=== PATIENT | female | born 1990 | race Caucasian/White ===

== ENCOUNTER 2022-01-27 14:16 | Inpatient (IN) | payer BC, OTHER ==
[2022-01-27] MEDS ORDERED: SODIUM CHLORIDE 1,000 ML IV ONE (14:46)
[2022-01-27 15:22] LABS: HEMATOCRIT 57.4 % (32.4-45.2); HEMOGLOBIN 16.2 GM/dL (10.7-15.3); MCH 28.6 pg (25.7-33.7); MCHC 28.2 g/dl (32.0-36.0); MEAN CELL VOLUME 101.3 fl (80-96); MEAN PLT VOLUME 11.3 fl (7.5-11.1); PLATELET COUNT 509 10^3/uL (134-434); RBC 5.67 M/mm3 (3.60-5.2); RDW 15.4 % (11.6-15.6); WHITE BLOOD COUNT 23.2 K/mm3 (4.0-10.0)
[2022-01-27 15:27] LABS: VENOUS BASE EXCESS -26.2 mmol/L (-2-2); VENOUS O2 SATURATION 60.6 % (70-80); VENOUS PCO2 31.8 mmHg (38-52)
[2022-01-27 15:30] LABS: INR 1.08 (0.83-1.09); PROTHROMBIN TIME (PATIENT) 12.4 SEC (9.7-13.0); VENOUS PH 6.908 (7.310-7.410)
[2022-01-27 15:33] LABS: ACTIVATED PTT 28.4 SECONDS (25.2-36.5)
[2022-01-27] MEDS ORDERED: SODIUM CHLORIDE 0.9% 500 ML INFUS.BAG IV ONE ×2 (15:43→17:47)
[2022-01-27 15:52] LABS: LACTIC ACID 5.6 mmol/L (0.4-2.0)
[2022-01-27 15:55] LABS: EPI CELLS 15 /uL (0-25.1); HYALINE CASTS 2 /uL (0-3.1); PH,URINE 5.5 (5.0-8.0); URINE APPEARANCE CLEAR; URINE BACTERIA 8 /uL (0-1359); URINE BILIRUBIN NEGATIVE (NEGATIVE); URINE COLOR YELLOW; URINE GLUCOSE (UA) 3+ (NEGATIVE); URINE KETONE 3+ (NEGATIVE); URINE LEUK ESTERASE NEGATIVE (NEGATIVE); URINE NITRITE NEGATIVE (NEGATIVE); URINE PROTEIN 1+ (NEGATIVE); URINE RBC 12 /uL (0-23.9); URINE UROBILINOGEN 0.2 mg/dL (0.2-1.0); URINE WBC 4 /uL (0-25.8)
[2022-01-27] MEDS ORDERED: INSULIN REGULAR 100 UNITS in SODIUM CHLORIDE 99 ML IVPB SCH ×2 (16:30→17:45)
[2022-01-27 17:30] LABS: ANISOCYTOSIS 0; HELMET CELLS 0; HOWELL-JOLLY BODIES 0; MACROCYTOSIS 0; OVALOCYTE 0; ROULEAU 0; SICKELED CELLS 0; TARGET CELLS 0; TEAR DROP CELLS 0; TOXIC GRANULATION 0
[2022-01-27] MEDS ORDERED: INSULIN REGULAR HUMAN 100 UNITS/ML *VIAL* (FOR IVP) IVPUSH ONE (17:40)
[2022-01-27] MEDS ORDERED: SODIUM CHLORIDE 1,000 ML with POTASSIUM CHLORIDE 20 MEQ IV SCH (17:45)
[2022-01-27 18:01] LABS: ALBUMIN 4.5 g/dl (3.4-5.0); ALK PHOS 326 U/L (45-117); ANION GAP 38 MMOL/L (8-16); BILIRUBIN,TOTAL 0.5 mg/dL (0.2-1); BLOOD UREA NITROGEN 51.1 mg/dL (7-18); CALCIUM 10.6 mg/dL (8.5-10.1); CHLORIDE 105 mmol/L (98-107); CO2 3 mmol/L (21-32); CREATININE 3.2 mg/dL (0.55-1.3); GLUCOSE,RANDOM 1307 mg/dL (74-106); SGOT/AST 34 U/L (15-37); SGPT/ALT 108 U/L (13-61); SODIUM 146 mmol/L (136-145); TOT PROT 9.4 g/dl (6.4-8.2)
[2022-01-27 19:58] LABS: VENOUS BASE EXCESS -24.7 mmol/L (-2-2); VENOUS PCO2 27.2 mmHg (38-52)
[2022-01-27 19:59] LABS: VENOUS O2 SATURATION 61.5 % (70-80)
[2022-01-27 20:17] LABS: CHLORIDE 120 mmol/L (98-107); SODIUM 154 mmol/L (136-145)
[2022-01-27 20:19] LABS: ANION GAP 26 MMOL/L (8-16); BLOOD UREA NITROGEN 53.8 mg/dL (7-18); CO2 8 mmol/L (21-32)
[2022-01-27 20:26] LABS: GLUCOSE,RANDOM 887 mg/dL (74-106)
[2022-01-27 20:30] LABS: VENOUS PH 6.971 (7.310-7.410)
[2022-01-27] MEDS ORDERED: KCL 10 MEQ IVPB 30 MEQ/300 ML INFUS.BAG IVPB ONE (22:27)
[2022-01-27] MEDS: KCL 10 MEQ IVPB 10 MEQ/100 ML INFUS.BAG IVPB SCH (22:31)
[2022-01-27 22:47] LABS: CHLORIDE 125 mmol/L (98-107); SODIUM 156 mmol/L (136-145)
[2022-01-27 22:48] LABS: CALCIUM 9.6 mg/dL (8.5-10.1)
[2022-01-27 22:49] LABS: ANION GAP 21 MMOL/L (8-16); BLOOD UREA NITROGEN 47.3 mg/dL (7-18); CO2 10 mmol/L (21-32)
[2022-01-27 22:52] LABS: CREATININE 2.4 mg/dL (0.55-1.3)
[2022-01-27 23:00] LABS: GLUCOSE,RANDOM 642 mg/dL (74-106)
[2022-01-27] MEDS ORDERED: POTASSIUM CHLORIDE 40 MEQ in SODIUM CHLORIDE 0.45% 1,000 ML IV SCH (23:00)
[2022-01-28] MEDS ORDERED: POTASSIUM CHLORIDE 40 MEQ in SODIUM CHLORIDE 0.45% 1,000 ML IV SCH (00:10)
[2022-01-28] MEDS: KCL 10 MEQ IVPB 10 MEQ/100 ML INFUS.BAG IVPB SCH ×2 (00:48→05:17)
[2022-01-28 01:12] LABS: CHLORIDE 128 mmol/L (98-107); SODIUM 159 mmol/L (136-145)
[2022-01-28 01:14] LABS: ANION GAP 18 MMOL/L (8-16); CO2 13 mmol/L (21-32)
[2022-01-28 01:15] LABS: BLOOD UREA NITROGEN 44.1 mg/dL (7-18)
[2022-01-28 01:18] LABS: CREATININE 2.2 mg/dL (0.55-1.3)
[2022-01-28 01:19] LABS: GLUCOSE,RANDOM 645 mg/dL (74-106)
[2022-01-28 05:00] LABS: CHLORIDE 131 mmol/L (98-107); SODIUM 158 mmol/L (136-145)
[2022-01-28 05:03] LABS: ANION GAP 14 MMOL/L (8-16); BLOOD UREA NITROGEN 38.1 mg/dL (7-18); CALCIUM 9.5 mg/dL (8.5-10.1); CO2 14 mmol/L (21-32)
[2022-01-28 05:07] LABS: CREATININE 1.8 mg/dL (0.55-1.3)
[2022-01-28 05:16] LABS: GLUCOSE,RANDOM 443 mg/dL (74-106)
[2022-01-28] MEDS ORDERED: POTASSIUM CHLORIDE 20 MEQ PREMIX IVPB 100 ML IVPB SCH (09:00)
[2022-01-28] MEDS ORDERED: MUPIROCIN 2% TOPICAL OINTMENT FOR DECOLONIZATION NS SCH (10:00)
[2022-01-28] MEDS ORDERED: INSULIN (LEVEMIR) 100 UNITS/ML UNITS SQ SCH ×2 (10:00→22:00)
[2022-01-28] MEDS: POTASSIUM CHLORIDE 40 MEQ in SODIUM CHLORIDE 0.45% 1,000 ML IV SCH (10:21)
[2022-01-28 10:45] LABS: ARTERIAL BLD GAS O2 SATURATION 91.7 % (95-98); ARTERIAL BLOOD GAS BASE EXCESS -9.3 mmol/L (-2-2); ARTERIAL BLOOD GAS PO2 63.7 mmHg (80-100); ARTERIAL BLOOD GAS pH 7.347 (7.350-7.450)
[2022-01-28 10:47] LABS: ALLENS TEST POSITIVE
[2022-01-28] MEDS: POTASSIUM CHLORIDE 10 MEQ PREMIX IVPB (POTASSIUM RIDER) IVPB SCH ×3 (11:09→13:30)
[2022-01-28] MEDS: INSULIN SLIDING SCALE (NOVOLOG) 1 VIAL SQ SCH ×4 (11:12→22:53)
[2022-01-28 11:32] LABS: CHLORIDE 132 mmol/L (98-107)
[2022-01-28 11:35] LABS: ALBUMIN 3.6 g/dl (3.4-5.0); BLOOD UREA NITROGEN 31.5 mg/dL (7-18); CALCIUM 9.9 mg/dL (8.5-10.1); CO2 18 mmol/L (21-32); GLUCOSE,RANDOM 236 mg/dL (74-106)
[2022-01-28 11:36] LABS: LIPASE 319 U/L (73-393); MAGNESIUM 3.4 mg/dL (1.8-2.4)
[2022-01-28 11:38] LABS: CREATININE 1.4 mg/dL (0.55-1.3); PHOSPHOROUS 1.4 mg/dL (2.5-4.9); SGOT/AST 23 U/L (15-37); SGPT/ALT 69 U/L (13-61)
[2022-01-28 11:40] LABS: BILIRUBIN,TOTAL 0.6 mg/dL (0.2-1)
[2022-01-28 11:44] LABS: ALK PHOS 225 U/L (45-117); ANION GAP 12 MMOL/L (8-16); SODIUM 162 mmol/L (136-145); TOT PROT 7.3 g/dl (6.4-8.2)
[2022-01-28 12:02] LABS: LACTIC ACID 2.1 mmol/L (0.4-2.0)
[2022-01-28 13:38] LABS: BASO % 0.2 % (0-2.0); EOS % 0.1 % (0-4.5); HEMATOCRIT 45.3 % (32.4-45.2); HEMOGLOBIN 14.6 GM/dL (10.7-15.3); LYMPH % 6.9 % (8-40); MCH 28.3 pg (25.7-33.7); MCHC 32.2 g/dl (32.0-36.0); MEAN CELL VOLUME 87.9 fl (80-96); MEAN PLT VOLUME 10.4 fl (7.5-11.1); MONO % 9.3 % (3.8-10.2); NEUT % 83.5 % (42.8-82.8); PLATELET COUNT 270 10^3/uL (134-434); RBC 5.16 M/mm3 (3.60-5.2); RDW 13.6 % (11.6-15.6); WHITE BLOOD COUNT 18.8 K/mm3 (4.0-10.0)
[2022-01-28 15:41] LABS: ANISOCYTOSIS 0; HELMET CELLS 0; HOWELL-JOLLY BODIES 0; MACROCYTOSIS 0; OVALOCYTE 0; ROULEAU 0; SICKELED CELLS 0; TARGET CELLS 0; TEAR DROP CELLS 0; TOXIC GRANULATION 0
[2022-01-28] MEDS: SODIUM CHLORIDE 0.45% 1,000 ML IV SCH ×2 (16:01→19:25)
[2022-01-28 16:14] LABS: BLOOD UREA NITROGEN 28.2 mg/dL (7-18); CALCIUM 10.2 mg/dL (8.5-10.1)
[2022-01-28 16:19] LABS: CREATININE 1.3 mg/dL (0.55-1.3)
[2022-01-28 20:01] LABS: CALCIUM 9.2 mg/dL (8.5-10.1)
[2022-01-28 20:02] LABS: BLOOD UREA NITROGEN 29.6 mg/dL (7-18)
[2022-01-28 20:05] LABS: CREATININE 1.3 mg/dL (0.55-1.3)
[2022-01-28] MEDS: INSULIN (LEVEMIR) 100 UNITS/ML UNITS SQ ONE ×2 (20:23→22:42)
[2022-01-28] MEDS ORDERED: CHLORHEXIDINE GLUCONATE 4% CLEANSER FOR DECOLONIZATION TP SCH (22:00)
[2022-01-28] MEDS: ENOXAPARIN NA (PORCINE) 40 MG/0.4 ML DISP.SYRIN SQ SCH (22:53)
[2022-01-29] MEDS: SODIUM CHLORIDE 0.45% 1,000 ML IV SCH (00:35)
[2022-01-29] MEDS ORDERED: SODIUM CHLORIDE 0.45% 1,000 ML IV SCH ×2 (02:38→11:14)
[2022-01-29] MEDS: INSULIN (LEVEMIR) 100 UNITS/ML UNITS SQ SCH (06:39)
[2022-01-29] MEDS: INSULIN (NOVOLOG) ASPART 100 UNITS/ML 10ML VIAL SQ SCH ×3 (06:39→18:08)
[2022-01-29] MEDS: INSULIN SLIDING SCALE (NOVOLOG) 1 VIAL SQ SCH ×4 (06:40→22:04)
[2022-01-29] MEDS: ENOXAPARIN NA (PORCINE) 40 MG/0.4 ML DISP.SYRIN SQ SCH ×2 (11:14→22:04)
[2022-01-29] MEDS: POTASSIUM CHLORIDE 40 MEQ in SODIUM CHLORIDE 0.45% 1,000 ML IV SCH (11:44)
[2022-01-29 12:08] LABS: BASO % 0.4 % (0-2.0); EOS % 0.6 % (0-4.5); HEMATOCRIT 37.6 % (32.4-45.2); HEMOGLOBIN 12.8 GM/dL (10.7-15.3); LYMPH % 16.4 % (8-40); MCH 28.9 pg (25.7-33.7); MEAN CELL VOLUME 85.2 fl (80-96); MEAN PLT VOLUME 9.9 fl (7.5-11.1); MONO % 8.9 % (3.8-10.2); NEUT % 73.7 % (42.8-82.8); PLATELET COUNT 225 10^3/uL (134-434); RBC 4.42 M/mm3 (3.60-5.2); RDW 13.9 % (11.6-15.6); WHITE BLOOD COUNT 10.5 K/mm3 (4.0-10.0)
[2022-01-29 12:44] LABS: CALCIUM 9.4 mg/dL (8.5-10.1)
[2022-01-29 12:45] LABS: MAGNESIUM 2.4 mg/dL (1.8-2.4)
[2022-01-29 12:47] LABS: PHOSPHOROUS 2.9 mg/dL (2.5-4.9)
[2022-01-29 12:48] LABS: BILIRUBIN,TOTAL 0.8 mg/dL (0.2-1); TOT PROT 6.2 g/dl (6.4-8.2)
[2022-01-29 14:58] VITALS: BMI 51.2
[2022-01-29] MEDS ORDERED: SODIUM CHLORIDE IV SCH ×2 (15:00)
[2022-01-29] MEDS ORDERED: WATER FOR INJ STERILE IV SCH ×2 (15:00)
[2022-01-29] MEDS ORDERED: POTASSIUM CHLORIDE TABS 20 MEQ TABLET.ER (FP) PO ONE (15:40)
[2022-01-29 16:05] LABS: BLOOD UREA NITROGEN 18.4 mg/dL (7-18); CALCIUM 9.4 mg/dL (8.5-10.1)
[2022-01-29 16:08] LABS: CREATININE 0.9 mg/dL (0.55-1.3)
[2022-01-29 16:09] LABS: PHOSPHOROUS 2.6 mg/dL (2.5-4.9)
[2022-01-29] MEDS: POTASSIUM CHLORIDE ORAL LIQUID 20 MEQ/15 ML PO ONE ×2 (17:39→18:34)
[2022-01-29] MEDS: SODIUM CHLORIDE 0.45%/POT 20 MEQ/1,000 ML INFUS.BAG IV SCH (18:32)
[2022-01-29] MEDS: NYSTATIN 500,000 UNITS/5 ML SUSPENSION PO SCH ×2 (18:36→23:37)
[2022-01-29] MEDS ORDERED: POTASSIUM CHLORIDE ORAL LIQUID 20 MEQ/15 ML PO ONE ×2 (18:57→22:00)
[2022-01-29 21:09] LABS: CALCIUM 9.2 mg/dL (8.5-10.1)
[2022-01-29 21:10] LABS: BLOOD UREA NITROGEN 15.8 mg/dL (7-18)
[2022-01-29 21:13] LABS: CREATININE 0.9 mg/dL (0.55-1.3)
[2022-01-29] MEDS ORDERED: INSULIN (LEVEMIR) 100 UNITS/ML UNITS SQ SCH (22:00)
[2022-01-29] MEDS: KCL 10 MEQ IVPB 10 MEQ/100 ML INFUS.BAG IVPB SCH (23:37)
[2022-01-30] MEDS: KCL 10 MEQ IVPB 10 MEQ/100 ML INFUS.BAG IVPB SCH ×2 (00:44→02:02)
[2022-01-30] MEDS: NYSTATIN 500,000 UNITS/5 ML SUSPENSION PO SCH ×4 (06:32→23:03)
[2022-01-30] MEDS: INSULIN (LEVEMIR) 100 UNITS/ML UNITS SQ SCH (06:32)
[2022-01-30] MEDS: INSULIN (NOVOLOG) ASPART 100 UNITS/ML 10ML VIAL SQ SCH ×3 (08:16→17:38)
[2022-01-30] MEDS: INSULIN SLIDING SCALE (NOVOLOG) 1 VIAL SQ SCH ×2 (08:17→12:59)
[2022-01-30] MEDS: ENOXAPARIN NA (PORCINE) 40 MG/0.4 ML DISP.SYRIN SQ SCH ×2 (10:18→21:50)
[2022-01-30] MEDS ORDERED: INSULIN (LEVEMIR) 100 UNITS/ML UNITS SQ SCH ×2 (10:56→15:09)
[2022-01-30 11:01] LABS: CALCIUM 8.7 mg/dL (8.5-10.1)
[2022-01-30 11:02] LABS: ALBUMIN 2.8 g/dl (3.4-5.0); BLOOD UREA NITROGEN 14.1 mg/dL (7-18)
[2022-01-30 11:05] LABS: CREATININE 0.8 mg/dL (0.55-1.3)
[2022-01-30 11:06] LABS: TOT PROT 6.1 g/dl (6.4-8.2)
[2022-01-30] MEDS ORDERED: INSULIN (NOVOLOG) ASPART 100 UNITS/ML 10ML VIAL SQ SCH (12:29)
[2022-01-30] MEDS: POTASSIUM CHLORIDE ORAL LIQUID 20 MEQ/15 ML PO SCH ×2 (13:03→21:50)
[2022-01-30] MEDS ORDERED: DEXAMETHASONE 0.5 MG TABLET PO ONE (22:00)
[2022-01-30] MEDS: SODIUM CHLORIDE 0.45%/POT 20 MEQ/1,000 ML INFUS.BAG IV SCH (23:03)
[2022-01-31] MEDS: NYSTATIN 500,000 UNITS/5 ML SUSPENSION PO SCH ×3 (07:08→17:34)
[2022-01-31] MEDS: INSULIN (LEVEMIR) 100 UNITS/ML UNITS SQ SCH ×2 (07:11→22:38)
[2022-01-31] MEDS: INSULIN (NOVOLOG) ASPART 100 UNITS/ML 10ML VIAL SQ SCH ×3 (08:25→17:33)
[2022-01-31 08:40] LABS: BASO % 0.4 % (0-2.0); EOS % 1.8 % (0-4.5); HEMATOCRIT 38.4 % (32.4-45.2); HEMOGLOBIN 12.8 GM/dL (10.7-15.3); LYMPH % 31.8 % (8-40); MCH 28.8 pg (25.7-33.7); MCHC 33.2 g/dl (32.0-36.0); MEAN CELL VOLUME 86.6 fl (80-96); MEAN PLT VOLUME 9.9 fl (7.5-11.1); MONO % 9.4 % (3.8-10.2); NEUT % 56.6 % (42.8-82.8); PLATELET COUNT 183 10^3/uL (134-434); RBC 4.44 M/mm3 (3.60-5.2); RDW 13.4 % (11.6-15.6); WHITE BLOOD COUNT 5.6 K/mm3 (4.0-10.0)
[2022-01-31 08:50] LABS: CALCIUM 9.1 mg/dL (8.5-10.1)
[2022-01-31 08:51] LABS: BLOOD UREA NITROGEN 11.1 mg/dL (7-18); MAGNESIUM 2.4 mg/dL (1.8-2.4)
[2022-01-31 08:54] LABS: CREATININE 0.7 mg/dL (0.55-1.3); PHOSPHOROUS 3.2 mg/dL (2.5-4.9)
[2022-01-31] MEDS: POTASSIUM CHLORIDE ORAL LIQUID 20 MEQ/15 ML PO SCH ×2 (11:41→22:39)
[2022-01-31] MEDS ORDERED: INSULIN (LEVEMIR) 100 UNITS/ML UNITS SQ SCH (13:09)
[2022-01-31] MEDS ORDERED: DEXTROSE 50%-WATER - 25 GM/50 ML VIAL IVPUSH PRN (13:26)
[2022-01-31] MEDS: ENOXAPARIN NA (PORCINE) 40 MG/0.4 ML DISP.SYRIN SQ SCH ×2 (14:29→22:38)
[2022-01-31] MEDS: INSULIN SLIDING SCALE (NOVOLOG) 1 VIAL SQ SCH ×2 (17:33→22:38)
[2022-02-01] MEDS: NYSTATIN 500,000 UNITS/5 ML SUSPENSION PO SCH ×5 (00:55→23:20)
[2022-02-01] MEDS: SODIUM CHLORIDE 0.45%/POT 20 MEQ/1,000 ML INFUS.BAG IV SCH (01:49)
[2022-02-01] MEDS: INSULIN (LEVEMIR) 100 UNITS/ML UNITS SQ SCH ×2 (06:17→23:42)
[2022-02-01] MEDS: ENOXAPARIN NA (PORCINE) 40 MG/0.4 ML DISP.SYRIN SQ SCH ×2 (10:16→23:16)
[2022-02-01] MEDS: POTASSIUM CHLORIDE ORAL LIQUID 20 MEQ/15 ML PO SCH ×2 (10:17→23:20)
[2022-02-01] MEDS: INSULIN (NOVOLOG) ASPART 100 UNITS/ML 10ML VIAL SQ SCH ×3 (10:17→18:16)
[2022-02-01] MEDS: INSULIN SLIDING SCALE (NOVOLOG) 1 VIAL SQ SCH ×4 (10:18→23:49)
[2022-02-01 11:51] LABS: CALCIUM 9.2 mg/dL (8.5-10.1)
[2022-02-01 11:52] LABS: ALBUMIN 3.1 g/dl (3.4-5.0)
[2022-02-01 11:53] LABS: BLOOD UREA NITROGEN 10.3 mg/dL (7-18)
[2022-02-01 11:53] LABS: BASO % 0.8 % (0-2.0); EOS % 2.9 % (0-4.5); HEMATOCRIT 39.5 % (32.4-45.2); LYMPH % 31.4 % (8-40); MCH 28.7 pg (25.7-33.7); MEAN CELL VOLUME 86.9 fl (80-96); MEAN PLT VOLUME 9.8 fl (7.5-11.1); MONO % 9.7 % (3.8-10.2); NEUT % 55.2 % (42.8-82.8); PLATELET COUNT 206 10^3/uL (134-434); RBC 4.54 M/mm3 (3.60-5.2); RDW 13.3 % (11.6-15.6); WHITE BLOOD COUNT 6.6 K/mm3 (4.0-10.0)
[2022-02-01 11:55] LABS: CREATININE 0.7 mg/dL (0.55-1.3)
[2022-02-01 11:56] LABS: TOT PROT 6.5 g/dl (6.4-8.2)
[2022-02-01 11:57] LABS: BILIRUBIN,TOTAL 0.8 mg/dL (0.2-1)
[2022-02-01] MEDS ORDERED: DEXAMETHASONE 0.5 MG TABLET PO ONE (22:00)
[2022-02-02] MEDS: NYSTATIN 500,000 UNITS/5 ML SUSPENSION PO SCH ×3 (06:31→18:30)
[2022-02-02] MEDS: INSULIN (LEVEMIR) 100 UNITS/ML UNITS SQ SCH ×2 (07:50→22:19)
[2022-02-02] MEDS: INSULIN (NOVOLOG) ASPART 100 UNITS/ML 10ML VIAL SQ SCH ×3 (07:51→16:50)
[2022-02-02] MEDS: INSULIN SLIDING SCALE (NOVOLOG) 1 VIAL SQ SCH ×4 (07:52→22:19)
[2022-02-02] MEDS: ENOXAPARIN NA (PORCINE) 40 MG/0.4 ML DISP.SYRIN SQ SCH ×2 (09:52→22:18)
[2022-02-02] MEDS: POTASSIUM CHLORIDE ORAL LIQUID 20 MEQ/15 ML PO SCH ×2 (09:53→22:19)
[2022-02-02 12:52] LABS: BASO % 0.4 % (0-2.0); EOS % 3.1 % (0-4.5); LYMPH % 17.8 % (8-40); MCH 28.4 pg (25.7-33.7); MCHC 32.6 g/dl (32.0-36.0); MEAN CELL VOLUME 87.1 fl (80-96); MEAN PLT VOLUME 10.1 fl (7.5-11.1); NEUT % 70.7 % (42.8-82.8); PLATELET COUNT 267 10^3/uL (134-434); RBC 4.59 M/mm3 (3.60-5.2); RDW 13.3 % (11.6-15.6); WHITE BLOOD COUNT 10.6 K/mm3 (4.0-10.0)
[2022-02-02 13:35] LABS: ALBUMIN 3.4 g/dl (3.4-5.0); BLOOD UREA NITROGEN 9.6 mg/dL (7-18)
[2022-02-02 13:40] LABS: BILIRUBIN,TOTAL 1.1 mg/dL (0.2-1); TOT PROT 6.8 g/dl (6.4-8.2)
[2022-02-02 13:53] LABS: CALCIUM 9.4 mg/dL (8.5-10.1); CREATININE 0.7 mg/dL (0.55-1.3)
[2022-02-02 15:16] LABS: BILIRUBIN,DIRECT 0.4 mg/dL (0.0-0.2)
[2022-02-03] MEDS: NYSTATIN 500,000 UNITS/5 ML SUSPENSION PO SCH ×5 (00:51→23:50)
[2022-02-03] MEDS: INSULIN (LEVEMIR) 100 UNITS/ML UNITS SQ SCH ×2 (06:53→21:41)
[2022-02-03] MEDS: INSULIN SLIDING SCALE (NOVOLOG) 1 VIAL SQ SCH ×4 (06:54→21:41)
[2022-02-03] MEDS: INSULIN (NOVOLOG) ASPART 100 UNITS/ML 10ML VIAL SQ SCH ×3 (06:54→18:40)
[2022-02-03] MEDS: POTASSIUM CHLORIDE ORAL LIQUID 20 MEQ/15 ML PO SCH ×2 (10:02→21:41)
[2022-02-03] MEDS: ENOXAPARIN NA (PORCINE) 40 MG/0.4 ML DISP.SYRIN SQ SCH ×2 (10:03→21:41)
[2022-02-03 12:34] LABS: HEMATOCRIT 40.3 % (32.4-45.2); HEMOGLOBIN 13.2 GM/dL (10.7-15.3); MCH 28.5 pg (25.7-33.7); MCHC 32.9 g/dl (32.0-36.0); MEAN CELL VOLUME 86.7 fl (80-96); MEAN PLT VOLUME 10.9 fl (7.5-11.1); PLATELET COUNT 317 10^3/uL (134-434); RBC 4.65 M/mm3 (3.60-5.2); WHITE BLOOD COUNT 12.3 K/mm3 (4.0-10.0)
[2022-02-03 13:02] LABS: ALBUMIN 3.6 g/dl (3.4-5.0); BLOOD UREA NITROGEN 12.3 mg/dL (7-18); CALCIUM 9.8 mg/dL (8.5-10.1)
[2022-02-03 13:05] LABS: CREATININE 0.8 mg/dL (0.55-1.3)
[2022-02-03 13:08] LABS: BILIRUBIN,TOTAL 0.8 mg/dL (0.2-1); TOT PROT 7.3 g/dl (6.4-8.2)
[2022-02-04] MEDS: NYSTATIN 500,000 UNITS/5 ML SUSPENSION PO SCH ×3 (06:13→17:56)
[2022-02-04] MEDS ORDERED: INSULIN SLIDING SCALE (NOVOLOG) 1 VIAL SQ ONE (06:34)
[2022-02-04] MEDS: INSULIN SLIDING SCALE (NOVOLOG) 1 VIAL SQ SCH ×4 (06:43→21:42)
[2022-02-04] MEDS: POTASSIUM CHLORIDE ORAL LIQUID 20 MEQ/15 ML PO SCH ×2 (09:18→21:34)
[2022-02-04] MEDS: ENOXAPARIN NA (PORCINE) 40 MG/0.4 ML DISP.SYRIN SQ SCH (09:18)
[2022-02-04] MEDS: INSULIN (LEVEMIR) 100 UNITS/ML UNITS SQ SCH ×2 (09:19→21:34)
[2022-02-04] MEDS: INSULIN (NOVOLOG) ASPART 100 UNITS/ML 10ML VIAL SQ SCH ×3 (09:19→17:56)
[2022-02-04 10:19] LABS: HEMATOCRIT 38.3 % (32.4-45.2); HEMOGLOBIN 12.6 GM/dL (10.7-15.3); MCH 28.7 pg (25.7-33.7); MEAN CELL VOLUME 87.2 fl (80-96); MEAN PLT VOLUME 9.8 fl (7.5-11.1); PLATELET COUNT 341 10^3/uL (134-434); RBC 4.39 M/mm3 (3.60-5.2); RDW 12.8 % (11.6-15.6); WHITE BLOOD COUNT 12.4 K/mm3 (4.0-10.0)
[2022-02-04 10:34] LABS: ALBUMIN 3.3 g/dl (3.4-5.0); BLOOD UREA NITROGEN 10.1 mg/dL (7-18); CALCIUM 9.1 mg/dL (8.5-10.1)
[2022-02-04 10:37] LABS: CREATININE 0.8 mg/dL (0.55-1.3)
[2022-02-04 10:40] LABS: BILIRUBIN,TOTAL 0.8 mg/dL (0.2-1); TOT PROT 6.7 g/dl (6.4-8.2)
[2022-02-04 11:25] LABS: ANISOCYTOSIS 0; MACROCYTOSIS 0; PLATELET ESTIMATE NORMAL
[2022-02-04 18:34] VITALS: RESP 18
[2022-02-05] MEDS: NYSTATIN 500,000 UNITS/5 ML SUSPENSION PO SCH ×4 (00:04→17:06)
[2022-02-05] MEDS: INSULIN SLIDING SCALE (NOVOLOG) 1 VIAL SQ SCH ×3 (06:04→16:56)
[2022-02-05] MEDS: INSULIN (LEVEMIR) 100 UNITS/ML UNITS SQ SCH (06:52)
[2022-02-05 08:50] LABS: HEMATOCRIT 36.6 % (32.4-45.2); HEMOGLOBIN 12.4 GM/dL (10.7-15.3); MCH 29.5 pg (25.7-33.7); MCHC 33.8 g/dl (32.0-36.0); MEAN CELL VOLUME 87.2 fl (80-96); MEAN PLT VOLUME 9.2 fl (7.5-11.1); PLATELET COUNT 346 10^3/uL (134-434); RBC 4.19 M/mm3 (3.60-5.2); RDW 13.2 % (11.6-15.6); WHITE BLOOD COUNT 12.5 K/mm3 (4.0-10.0)
[2022-02-05] MEDS: INSULIN (NOVOLOG) ASPART 100 UNITS/ML 10ML VIAL SQ SCH ×3 (08:55→16:57)
[2022-02-05 09:16] LABS: CALCIUM 9.1 mg/dL (8.5-10.1)
[2022-02-05 09:17] LABS: ALBUMIN 3.2 g/dl (3.4-5.0); BLOOD UREA NITROGEN 9.2 mg/dL (7-18)
[2022-02-05 09:20] LABS: CREATININE 0.7 mg/dL (0.55-1.3)
[2022-02-05 09:22] LABS: BILIRUBIN,TOTAL 0.7 mg/dL (0.2-1); TOT PROT 6.4 g/dl (6.4-8.2)
[2022-02-05] MEDS: POTASSIUM CHLORIDE ORAL LIQUID 20 MEQ/15 ML PO SCH (10:41)
[2022-02-05 11:15] LABS: ANISOCYTOSIS 1+; MACROCYTOSIS 1+; PLATELET ESTIMATE NORMAL
[2022-02-05] MEDS ORDERED: INSULIN (LEVEMIR) 100 UNITS/ML UNITS SQ SCH ×2 (18:09→22:00)
[2022-02-05 19:11] VITALS: BP 131/74; PULSE 97; TEMP 97.7
[2022-02-06] MEDS ORDERED: INSULIN (NOVOLOG) ASPART 100 UNITS/ML 10ML VIAL SQ SCH (07:00)
== END 2022-02-05 20:58 | disposition home or self-care (01) | DRG 637 ==
LOC: JER 14:16 → JERBED 15:38 → JICU 01-28 02:42 → J5S 01-28 16:28
PROVIDERS: ADMIT Internal Medicine Pulmonary Disease; ATTEND Internal Medicine
PROC: 06HM33Z Insertion of Infusion Device into Right Femoral Vein, Percutaneous Approach (ICD-10-PCS; principal; 2022-01-27)
DX: E11.10 Type 2 diabetes mellitus with ketoacidosis without coma (principal); G92.8 Other toxic encephalopathy; E87.0 Hyperosmolality and hypernatremia; N17.9 Acute kidney failure, unspecified; Z68.43 Body mass index [BMI] 50.0-59.9, adult; B37.0 Candidal stomatitis; E24.9 Cushing's syndrome, unspecified; E66.01 Morbid (severe) obesity due to excess calories; E28.2 Polycystic ovarian syndrome; D72.829 Elevated white blood cell count, unspecified; E87.6 Hypokalemia; R74.01 Elevation of levels of liver transaminase levels; R79.89 Other specified abnormal findings of blood chemistry; K76.0 Fatty (change of) liver, not elsewhere classified; R00.0 Tachycardia, unspecified; L50.0 Allergic urticaria; T50.8X5A Adverse effect of diagnostic agents, initial encounter; D35.2 Benign neoplasm of pituitary gland; Z79.4 Long term (current) use of insulin
CPT/HCPCS: 0241U-QW; 36415; 36600; 70552-TC; 71045-TC-FY; 71275-TC; 74177-TC; 76705-TC; 80048; 80053; 80061; 80076; 81003; 82010; 82024; 82436; 82530; 82533; 82550; 82728; 82803; 82962; 82977; 83036; 83540; 83550; 83605; 83690; 83735; 83935; 84100; 84133; 84146; 84300; 84484; 85025; 85027; 85379; 85610; 85730; 86140; 86705; 86803; 87040; 87086; 87340; 87517; 93005; 93010; 93306-TC; 93975; 99291; J3480; J8540